=== PATIENT | male | born 1960 | race American Indian/Alaskan Native ===

== ENCOUNTER 2017-03-18 18:20 | Emergency (ER) | payer MEDICARE ==
[2017-03-18 18:42] VITALS: BP 105/70
--- NOTE | 2017-03-18 18:51 | Emergency Department Report ---
ED General Adult HPI - General Chief complaint: Medical Clearance Stated complaint: NEED RX FOR PIN NEEDLES Time Seen by Provider: 03/18/17 18:48 Source: patient Mode of arrival: Ambulatory Limitations: No Limitations - Related Data Previous Rx's Medication Instructions Recorded Last Taken Type Duloxetine HCl [Cymbalta] 60 mg PO QDAY #30 capsule. 01/02/14 Unknown Rx Insulin Aspart [NovoLOG Flexpen] 100 unit SQ TID #1 pen 01/02/14 Unknown Rx Prednisone [predniSONE] 20 mg PO QDAY #30 tablet 01/02/14 Unknown Rx Cyclobenzaprine [Flexeril 10mg] 10 mg PO Q8H PRN #21 tablet 05/14/14 Unknown Rx HYDROcodone/APAP 10-325 [Boss 1 each PO Q6HR PRN #20 tablet 05/14/14 Unknown Rx 10-325 mg TAB] Pen Needle, Diabetic [Insulin Pen 1 each MC TID #1 box 03/18/17 Unknown Rx Needle] Allergies Allergy/AdvReac Type Severity Reaction Status Date / Time Penicillins Allergy Unknown Verified 01/02/14 10:16 ED Review of Systems ROS: Stated complaint: NEED RX FOR PIN NEEDLES Other details as noted in HPI Comment: All other systems reviewed and negative Constitutional: no symptoms reported Eyes: as per HPI ENT: as per HPI Respiratory: no symptoms reported Cardiovascular: as per HPI Endocrine: no symptoms reported Gastrointestinal: as per HPI Genitourinary: as per HPI Musculoskeletal: as per HPI Skin: as per HPI Neurological: as per HPI Psychiatric: as per HPI Hematological/Lymphatic: as per HPI ED Past Medical Hx - Past Medical History Previous Medical History?: Yes Hx Diabetes: Yes Hx Psychiatric Treatment: Yes ([facility]) Additional medical history: pseudotumor behind the right eye. diabetic neuropathy. Hepatitis B - Surgical History Past Surgical History?: Yes Hx Cholecystectomy: Yes - Social History Smoking Status: Current Some Day Smoker - Medications Home Medications: Home Medications Medication Instructions Recorded Confirmed Last Taken Type Duloxetine HCl [Cymbalta] 60 mg PO QDAY #30 capsule. 01/02/14 05/14/14 Unknown Rx Insulin Aspart [NovoLOG Flexpen] 100 unit SQ TID #1 pen 01/02/14 05/14/14 Unknown Rx Prednisone [predniSONE] 20 mg PO QDAY #30 tablet 01/02/14 05/14/14 Unknown Rx Cyclobenzaprine [Flexeril 10mg] 10 mg PO Q8H PRN #21 tablet 05/14/14 05/14/14 Unknown Rx HYDROcodone/APAP 10-325 [Boss 1 each PO Q6HR PRN #20 tablet 05/14/14 05/14/14 Unknown Rx 10-325 mg TAB] Pen Needle, Diabetic [Insulin Pen 1 each MC TID #1 box 03/18/17 Unknown Rx Needle] ED Physical Exam - General Limitations: No Limitations General appearance: alert - Head Head exam: Present: atraumatic - ENT ENT exam: Present: normal exam - Neck Neck exam: Present: normal inspection - Respiratory Respiratory exam: Present: normal lung sounds bilaterally - Cardiovascular Cardiovascular Exam: Present: regular rate - GI/Abdominal GI/Abdominal exam: Present: soft - Extremities Exam Extremities exam: Present: normal inspection - Back Exam Back exam: Present: normal inspection - Neurological Exam Neurological exam: Present: alert, altered, oriented X3 - Psychiatric Psychiatric exam: Present: normal affect, normal mood - Skin Skin exam: Present: warm, dry, intact ED Course Vital Signs 03/18/17 18:40 Temperature 98.3 F Pulse Rate 89 Respiratory 18 Rate Blood Pressure 105/70 O2 Sat by Pulse 96 Oximetry ED Medical Decision Making - Medical Decision Making saw MD in [facility] today he got all his med x needles for his flexipen he needs rx for box of needles tid dosing no 90 per month disp 11 refills pharm may call prn Critical care attestation.: If time is entered above; I have spent that time in minutes in the direct care of this critically ill patient, excluding procedure time. ED Disposition Clinical Impression: Medicine refill Disposition: DISCHARGED TO HOME OR SELFCARE Is pt being admited?: No Does the pt Need Aspirin: No Condition: Stable Prescriptions: Pen Needle, Diabetic [Insulin Pen Needle] 1 each MC TID #1 box Time of Disposition: 18:48
== END 2017-03-18 18:50 | disposition home or self-care (01) ==
LOC: ED 18:20
DX: Z76.0 Encounter for issue of repeat prescription (principal); E11.9 Type 2 diabetes mellitus without complications; F17.200 Nicotine dependence, unspecified, uncomplicated; Z86.19 Personal history of other infectious and parasitic diseases; Z90.49 Acquired absence of other specified parts of digestive tract
CPT/HCPCS: 99282

== ENCOUNTER 2017-04-17 21:31 | Emergency (ER) | payer MEDICARE ==
[2017-04-17 22:39] LABS: Basophils % (Auto) 0.2 % (0.0-1.8); Eosinophils % (Auto) 0.6 % (0.0-4.3); Hematocrit 46.2 % (35.5-45.6); Hemoglobin 15.8 gm/dl (11.8-15.2); Mean Corpuscular HGB Conc 34 % (32-34); Mean Corpuscular Hemoglobin 33 pg (28-32); Mean Corpuscular Volume 98 fl (84-94); Platelet Count 223 K/mm3 (140-440); Red Blood Count 4.73 M/mm3 (3.65-5.03); Red Cell Distribution Width 12.2 % (13.2-15.2); White Blood Count 8.9 K/mm3 (4.5-11.0)
[2017-04-17 22:56] LABS: Anion Gap 18 mmol/L; Blood Urea Nitrogen 21 mg/dL (9-20); Calcium 9.6 mg/dL (8.4-10.2); Carbon Dioxide 31 mmol/L (22-30); Chloride 95.1 mmol/L (98-107); Glucose 367 mg/dL (75-100); Potassium 3.4 mmol/L (3.6-5.0); Sodium 141 mmol/L (137-145)
--- NOTE | 2017-04-18 00:11 | Cat Scan Report ---
FINAL REPORT EXAM: CT HEAD/BRAIN WO CON HISTORY: fall, midline pain COMPARISON: None available. TECHNIQUE: Axial images obtained skull base through vertex. FINDINGS: No acute intracranial hemorrhage, midline shift or pathologic extra axial fluid collection. Ventricles and cisterns are normal in size and configuration for the patient's age. Juan-white differentiation preserved. Calvarium grossly intact. Mild to moderate mucosal thickening of the left sphenoid sinus. Mastoid air cells are clear. Visualized orbits are grossly unremarkable. Multiple punctate calcifications scattered throughout the skin. Benign finding. IMPRESSION: No grossly acute intracranial abnormality.
--- NOTE | 2017-04-18 00:13 | Cat Scan Report ---
FINAL REPORT EXAM: CT CERVICAL SPINE WO CON HISTORY: fall, midline pain COMPARISON: None available. TECHNIQUE: Axial images obtained through the cervical spine. Additional sagittal and coronal reformatted images were obtained. FINDINGS: Straightening of the normal lordotic curvature of the cervical spine. Cervical vertebral body heights are preserved. No acute fracture or traumatic subluxation. Odontoid process, articular pillars and occipital condyles are intact. Moderate loss of disc height C4-C5 through C6-C7 levels. Mild to moderate canal stenosis and foraminal narrowing at those levels. IMPRESSION: No acute fracture or subluxation of the cervical spine. There is straightening of the normal lordotic curvature which may relate to patient positioning or muscle spasm. Mild to moderate degenerative changes.
--- NOTE | 2017-04-18 00:19 | Cat Scan Report ---
FINAL REPORT EXAM: CT THORACIC SPINE WO CON HISTORY: fall, midline pain COMPARISON: None available. TECHNIQUE: Contiguous axial images were obtained. Additional sagittal and coronal reformatted images were obtained. FINDINGS: Thoracic vertebral body heights are preserved. Mild loss of disc height at several levels. No significant canal or foramina ring throughout the thoracic spine. No acute fracture traumatic subluxation of the thoracic spine. Paraspinal musculature is grossly unremarkable. Visualized posterior ribs are intact. IMPRESSION: No acute fracture or traumatic subluxation of the thoracic spine. Mild degenerative changes.
--- NOTE | 2017-04-18 00:24 | Cat Scan Report ---
FINAL REPORT EXAM: CT LUMBAR SPINE WO CON HISTORY: fall, midline pain COMPARISON: None available. TECHNIQUE: Contiguous axial images were obtained. Additional sagittal and coronal reformatted images were obtained. FINDINGS: Lumbar vertebral body heights are preserved. Mild loss of disc height L5-S1 level. Remaining disc heights are preserved. No acute fracture traumatic subluxation of the lumbar spine. Mild broad-based disc bulge at the L4-L5 level causes mild canal stenosis. Mild bilateral foramina ring at that level due to endplate osteophyte mild broad-based disc bulge. Mild broad-based disc bulge at the L5-S1 level causes at least mild canal stenosis. Mild left and moderate right foraminal narrowing at that level due to endplate osteophyte and broad-based disc bulge. No significant canal or foramina ring throughout the remainder of the lumbar spine by CT. Paraspinal musculature is grossly unremarkable. Visualized aorta is normal in caliber with moderate calcification of the aorta. IMPRESSION: No acute fracture or traumatic subluxation of the lumbar spine. Mild to moderate degenerative changes of the lower lumbar spine.
[2017-04-18] MEDS ORDERED: NORCO 5/325 PO ONE (01:51)
[2017-04-18] MEDS ORDERED: FLEXERIL PO ONE (01:51)
--- NOTE | 2017-04-18 01:52 | Emergency Department Report ---
ED Fall HPI - General Chief Complaint: Fall Stated Complaint: BACK/NECK/HEADACHE Time Seen by Provider: 04/18/17 01:43 Source: patient, family Mode of arrival: Ambulatory - History of Present Illness Initial Comments: Patient reported that he slipped and fell Saturday or Saturday down 4 steps and is complaining of midline pain to lower back and neck and headache. Denies any loss of consciousness, nausea or vomiting, blurred vision. Denies any alcohol use. Denies any numbness or tingling to extremities or any loss of bowel or bladder function. He reports pain is 4 out of 10 to the back of his neck had an lower back and also mid back. Feels achy. He is also reports pounding pain to lower back at both sides. MD Complaint: fall Onset/Timin -: days(s) Fall From: standing When Fall Occurred: # days [employer] (3) Fall Witnessed: yes, by family Place Fall Occurred: home Loss of Consciousness: none Prolonged Down Time?: no Symptoms Prior to Fall: none Location: head, neck, back Severity: mild Severity scale (0 -10): 4 Quality: aching Context: tripped/slipped Associated Symptoms: headache, neck pain. denies: numbness, weakness, chest paint, shortness of breath, abdominal pain, hematuria, unable to walk, lightheaded, vertigo, confusion - Related Data Previous Rx's Medication Instructions Recorded Last Taken Type Duloxetine HCl [Cymbalta] 60 mg PO QDAY #30 capsule. 01/02/14 Unknown Rx Insulin Aspart [NovoLOG Flexpen] 100 unit SQ TID #1 pen 01/02/14 Unknown Rx Prednisone [predniSONE] 20 mg PO QDAY #30 tablet 01/02/14 Unknown Rx Cyclobenzaprine [Flexeril 10mg] 10 mg PO Q8H PRN #21 tablet 05/14/14 Unknown Rx HYDROcodone/APAP 10-325 [[place] 1 each PO Q6HR PRN #20 tablet 05/14/14 Unknown Rx 10-325 mg TAB] Pen Needle, Diabetic [Insulin Pen 1 each MC TID #1 box 03/18/17 Unknown Rx Needle] methOCARBAMOL [Robaxin TAB] 500 mg PO BID PRN #12 tab 04/18/17 Unknown Rx traMADol [Ultram] 50 mg PO Q6HR PRN #12 tablet 04/18/17 Unknown Rx Allergies Allergy/AdvReac Type Severity Reaction Status Date / Time Penicillins Allergy Unknown Verified 01/02/14 10:16 ED Review of Systems ROS: Stated complaint: BACK/NECK/HEADACHE Other details as noted in HPI Comment: All other systems reviewed and negative Constitutional: denies: chills, fever Eyes: denies: eye pain, vision change Respiratory: no symptoms reported Cardiovascular: denies: chest pain, palpitations, edema, syncope Gastrointestinal: denies: abdominal pain, nausea, vomiting, diarrhea Musculoskeletal: back pain, arthralgia, myalgia. denies: joint swelling Skin: denies: rash Neurological: headache. denies: weakness, numbness, paresthesias, confusion, abnormal gait, vertigo ED Past Medical Hx - Past Medical History Previous Medical History?: Yes Hx Diabetes: Yes Hx Psychiatric Treatment: Yes ([facility], [facility]) Additional medical history: pseudotumor behind the right eye. diabetic neuropathy. Hepatitis B - Surgical History Past Surgical History?: Yes Hx Cholecystectomy: Yes - Family History Family history: hypertension - Social History Smoking Status: Current Every Day Smoker Substance Use Type: None - Medications Home Medications: Home Medications Medication Instructions Recorded Confirmed Last Taken Type Duloxetine HCl [Cymbalta] 60 mg PO QDAY #30 capsule. 01/02/14 05/14/14 Unknown Rx Insulin Aspart [NovoLOG Flexpen] 100 unit SQ TID #1 pen 01/02/14 05/14/14 Unknown Rx Prednisone [predniSONE] 20 mg PO QDAY #30 tablet 01/02/14 05/14/14 Unknown Rx Cyclobenzaprine [Flexeril 10mg] 10 mg PO Q8H PRN #21 tablet 05/14/14 05/14/14 Unknown Rx HYDROcodone/APAP 10-325 [[place]ell 1 each PO Q6HR PRN #20 tablet 05/14/14 05/14/14 Unknown Rx 10-325 mg TAB] Pen Needle, Diabetic [Insulin Pen 1 each MC TID #1 box 03/18/17 Unknown Rx Needle] methOCARBAMOL [Robaxin TAB] 500 mg PO BID PRN #12 tab 04/18/17 Unknown Rx traMADol [Ultram] 50 mg PO Q6HR PRN #12 tablet 04/18/17 Unknown Rx ED Physical Exam - General Limitations: No Limitations General appearance: alert, in no apparent distress - Head Head exam: Present: atraumatic, normocephalic, normal inspection - Expanded Head Exam Expanded Head exam: Absent: laceration, abrasion, contusion, hematoma, racoon eyes, hahn's sign, general tenderness, tenderness of temporal artery, CSF rhinorrhea , CSF otorrhea - Eye Eye exam: Present: normal appearance, PERRL, EOMI. Absent: scleral icterus, conjunctival injection, nystagmus, periorbital swelling, periorbital tenderness Pupils: Present: normal accommodation - ENT ENT exam: Present: normal exam, normal orophraynx, mucous membranes moist, TM's normal bilaterally, normal external ear exam - Neck Neck exam: Present: normal inspection, tenderness, full ROM. Absent: meningismus, lymphadenopathy - Expanded Neck Exam Expanded Neck exam: Present: tenderness. Absent: midline deformity, anterior neck swelling, tracheal deviation - Respiratory Respiratory exam: Present: normal lung sounds bilaterally. Absent: respiratory distress, wheezes, rales, rhonchi, stridor, chest wall tenderness - Cardiovascular Cardiovascular Exam: Present: regular rate, normal rhythm, normal heart sounds - GI/Abdominal GI/Abdominal exam: Present: soft, normal bowel sounds. Absent: distended, tenderness, guarding, rebound, rigid - Extremities Exam Extremities exam: Present: normal inspection, full ROM, normal capillary refill. Absent: tenderness, pedal edema, joint swelling, calf tenderness - Back Exam Back exam: Present: normal inspection, full ROM, tenderness, muscle spasm, vertebral tenderness (midline tenderness to L-spine). Absent: CVA tenderness (R ), CVA tenderness (L), paraspinal tenderness, rash noted - Expanded Back Exam Expanded Back exam: Absent: saddle anesthesia Back exam: Negative Straight Leg Raising: Left, Right - Neurological Exam Neurological exam: Present: alert, oriented X3, normal gait, reflexes normal. Absent: motor sensory deficit - Expanded Neurological Exam Expanded Neurological exam: Absent: innattentive, memory loss-remote event, memory loss- recent event, ataxia, receptive aphasia, expressive aphasia, total aphasia, tremor, protecting the airway Patient oriented to: Present: person, place, time Speech: Present: fluid speech Cranial nerves: EOM's Intact: Normal, Gag Reflex: Normal, Nystagmus: Normal, Facial Sensation: Normal Cerebellar function: Romberg: Normal Upper motor neuron: Pronator Drift: Normal, Sensory Extinction: Normal Sensory exam: Upper Extremity Light Touch: Normal, Upper Extremity Pin Prick: Normal, Upper Extremity Temperature: Normal, UE 2 Point Discrimination: Normal, Lower Extremity Light Touch: Normal, Lower Extremity Pin Prick: Normal, Lower Extremity Temperature: Normal, LE 2 Point Discrimination: Normal Motor strength exam: RUE: 5, LUE: 5, RLE: 5, LLE: 5 DTR: bicep (R): 2+, bicep (L): 2+, tricep (R): 2+, tricep (L): 2+, knee (R): 2+ , knee (L): 2+, ankle (R): 2+, ankle (L): 2+ Best Eye Response (Jesus): (4) open spontaneously Best Motor Response (Jesus): (6) obeys commands Best Verbal Response (Jesus): (5) oriented Jesus Total: 15 - Psychiatric Psychiatric exam: Present: normal affect, normal mood - Skin Skin exam: Present: warm, dry, intact, normal color. Absent: rash ED Course Vital Signs 04/17/17 21:54 Temperature 99.3 F Pulse Rate 81 Respiratory 18 Rate Blood Pressure 113/74 [Right] O2 Sat by Pulse 96 Oximetry - Reevaluation(s) Reevaluation #1: 04/18/17 02:42 Patient given Flexeril 10 mg and 5/325 one tablet in the emergency room for muscle spasm and musculoskeletal Pain 04/18/17 02:43 ED Medical Decision Making - Lab Data Result diagrams: 04/17/17 22:13 04/17/17 22:13 Lab Results 04/17/17 04/17/17 Range/Units 22:13 22:13 WBC 8.9 (4.5-11.0) K/mm3 RBC 4.73 (3.65-5.03) M/mm3 Hgb 15.8 H (11.8-15.2) gm/dl Hct 46.2 H (35.5-45.6) % MCV 98 H (84-94) fl MCH 33 H (28-32) pg MCHC 34 (32-34) % RDW 12.2 L (13.2-15.2) % Plt Count 223 (140-440) K/mm3 Lymph % (Auto) 37.4 H (13.4-35.0) % [place] % (Auto) 8.4 H (0.0-7.3) % Eos % (Auto) 0.6 (0.0-4.3) % Baso % (Auto) 0.2 (0.0-1.8) % Lymph # 3.3 (1.2-5.4) K/mm3 [place] # 0.7 (0.0-0.8) K/mm3 Eos # 0.1 (0.0-0.4) K/mm3 Baso # 0.0 (0.0-0.1) K/mm3 Seg Neutrophils % 53.4 (40.0-70.0) % Seg Neutrophils # 4.7 (1.8-7.7) K/mm3 Sodium 141 (137-145) mmol/L Potassium 3.4 L (3.6-5.0) mmol/L Chloride 95.1 L (98-107) mmol/L Carbon Dioxide 31 H (22-30) mmol/L Anion Gap 18 mmol/L BUN 21 H (9-20) mg/dL Creatinine 1.0 (0.8-1.5) mg/dL Estimated GFR > 60 ml/min BUN/Creatinine Ratio 21.00 % Glucose 367 H (75-100) mg/dL Calcium 9.6 (8.4-10.2) mg/dL - Radiology Data Radiology results: report reviewed CT scan lumbar spine without contrast revealed no acute fracture or traumatic subluxation of the lumbar spine. Mild to moderate degenerative changes of the lower lumbar spine. CT scan of the brain without contrast revealed no grossly acute intracranial abnormalities. CT scan of the cervical spine reveals no acute fracture or subluxation of the cervical spine. There is straightening of the normal lordotic curvature which may relate to the patient positioning or muscle spasm. He does have muscle spasm. He does have mild to moderate degenerative changes. CT scan of the thoracic spine reveal no fracture or traumatic subluxation of the thoracic spine mild degenerative changes. - Medical Decision Making ED course: Status post fall 3 days ago with complaint of headache, midline neck pain, midline back pain and bilateral lower back pain and also upper back pain. He is neurologically intact and all CT scans were negative except for findings for degenerative changes and neck muscle spasm. This was explained to patient in detail and he voiced understanding. She was given Flexeril 10 mg and milk 5/325 one tablet in the emergency room for relief of pain. He was also given potassium 40 mEq 1 for potassium of 3.4 which is mildly decreased. Her explained to him that he CBC shows that he is dehydrated and he is to increase his fluid intake. Patient denies that he drink alcohol. Platelet is stable. I discussed the patient if he continues to have pain in his follow-up orthopedic doctor and patient was understanding discharged with family with prescription for Motrin and Robaxin. Critical care attestation.: If time is entered above; I have spent that time in minutes in the direct care of this critically ill patient, excluding procedure time. ED Disposition Clinical Impression: Hypokalemia, Back muscle spasm Accidental fall on or from stairs or steps Qualifiers: Encounter type: initial encounter Qualified Code(s): W10.8XXA - Fall (on) (from ) other stairs and steps, initial encounter Acute post-traumatic headache Qualifiers: Intractability: not intractable Qualified Code(s): G44.319 - Acute post- traumatic headache, not intractable Degenerative joint disease of spine Qualifiers: Spinal region: unspecified Spinal osteoarthritis complication: without myelopathy or radiculopathy Qualified Code(s): M47.819 - Spondylosis without myelopathy or radiculopathy, site unspecified Neck muscle strain Qualifiers: Encounter type: initial encounter Qualified Code(s): S16.1XXA - Strain of muscle, fascia and tendon at neck level, initial encounter Disposition: DC-01 TO HOME OR SELFCARE Is pt being admited?: No Does the pt Need Aspirin: No Condition: Stable Instructions: Muscle Strain (ED), Degenerative Disc Disease (ED), Muscle Spasm (ED), Back Pain (ED), Fall Prevention (ED), Hypokalemia (ED), Acute Headache (ED ) Additional Instructions: Your potassium level mildly decreased so., Eat At least 2 bananas to increase her potassium . Take medication as prescribed. Robaxin cause drowsiness. Do not drive or operate heavy machinery while taking this medication. Follow-up with orthopedic doctor if he still continued to have pain Please increase her fluid intake Prescriptions: methOCARBAMOL [Robaxin TAB] 500 mg PO BID PRN #12 tab PRN Reason: Muscle Spasm traMADol [Ultram] 50 mg PO Q6HR PRN #12 tablet PRN Reason: Pain Referrals: PRIMARY CAREMD [Primary Care Provider] - 04/19/17 KAYKAY MUÑOZ MD [Staff Physician] - 04/22/17 Forms: Accompanied Note, Work/School Release Form(ED)
[2017-04-18] MEDS ORDERED: K-DUR PO ONE (02:43)
[2017-04-18 03:10] VITALS: BP 145/84
== END 2017-04-18 03:00 | disposition home or self-care (01) ==
LOC: ED 21:31
DX: G44.319 Acute post-traumatic headache, not intractable (principal); E87.6 Hypokalemia; M47.9 Spondylosis, unspecified; S16.1XXA Strain of muscle, fascia and tendon at neck level, initial encounter; I10 Essential (primary) hypertension; M62.830 Muscle spasm of back; F17.210 Nicotine dependence, cigarettes, uncomplicated; E11.40 Type 2 diabetes mellitus with diabetic neuropathy, unspecified; F32.9 Major depressive disorder, single episode, unspecified; Z90.49 Acquired absence of other specified parts of digestive tract; Z88.0 Allergy status to penicillin; Z79.4 Long term (current) use of insulin; W10.9XXA Fall (on) (from) unspecified stairs and steps, initial encounter; Y93.89 Activity, other specified; Y92.89 Other specified places as the place of occurrence of the external cause; Y99.8 Other external cause status
CPT/HCPCS: 36415; 70450; 72125; 72128; 72131; 80048; 85025; 99284

== ENCOUNTER 2020-12-14 15:41 | Emergency (ER) | payer MEDICARE ==
--- NOTE | 2020-12-14 15:46 | Event Note ---
ED Screening Note Date of service: 12/14/20 Time: 15:45 ED Screening Note: This is a pleasant 60-year-old male presents the emergency department with chief complaint of right-sided lower abdominal pain has been intermittent over the past month but much more severe over the past 2 days. He reports associated nausea and vomiting. Denies any diarrhea, melena, hematochezia, testicular pain, fever, chills, night sweats, headache, dizziness, blurry vision or any other associated symptoms. Has history of hypertension diabetes. This initial assessment/diagnostic orders/clinical plan/treatment(s) is/are subject to change based on patients health status, clinical progression and re-assessment by fellow clinical providers in the ED. Further treatment and workup at subsequent clinical providers discretion. Patient/guardian urged not to elope from the ED as their condition may be serious if not clinically assessed and managed. Initial orders include: CBC, CMP, lipase, urinalysis.
[2020-12-14 15:52] VITALS: BP 111/67
[2020-12-14 16:14] LABS: Basophils % (Auto) 0.6 % (0.0-1.8); Eosinophils # (Auto) 0.1 K/mm3 (0.0-0.4); Eosinophils % (Auto) 1.2 % (0.0-4.3); Hemoglobin 14.7 gm/dl (11.8-15.2); Lymphocytes # (Auto) 1.4 K/mm3 (1.2-5.4); Lymphocytes % (Auto) 30.1 % (13.4-35.0); Mean Corpuscular HGB Conc 34 % (32-34); Mean Corpuscular Volume 99 fl (84-94); Monocytes # (Auto) 0.4 K/mm3 (0.0-0.8); Monocytes % (Auto) 8.7 % (0.0-7.3); Platelet Count 193 K/mm3 (140-440); Red Blood Count 4.35 M/mm3 (3.65-5.03)
[2020-12-14 16:25] LABS: Alanine Aminotransferase 26 units/L (7-56); Albumin 4.3 g/dL (3.9-5); BUN/Creatinine Ratio 16; Bilirubin,Direct 0.2 mg/dL (0-0.2); Blood Urea Nitrogen 16 mg/dL (9-20); Calcium 9.4 mg/dL (8.4-10.2); Hemolysis Index 10
[2020-12-14] MEDS ORDERED: MORPHINE 4 MG/1 ML INJ IV ONE (17:04)
[2020-12-14] MEDS ORDERED: ONDANSETRON 4 MG/2 ML INJ IV ONE (17:04)
--- NOTE | 2020-12-14 17:06 | Emergency Department Report ---
ED General Adult HPI - General Chief complaint: Abdominal Pain Stated complaint: LOWER STOMACH PAIN Time Seen by Provider: 12/14/20 16:41 Source: patient Mode of arrival: Ambulatory Limitations: No Limitations - History of Present Illness Initial comments: The patient presents to the emergency department with a chief complaint of right lower quadrant abdominal pain that has been on and off for the last month. Patient states today that abdominal pain became intense and has been continuous since its onset. Patient also complains of a 7 pound unintended weight loss in the last month. Patient denies any chest pain, shortness of breath, or headache. Patient states any movement causes the abdominal pain to get worse. -: Gradual Location: abdomen Radiation: non-radiation Severity scale (0 -10): 7 Quality: sharp Consistency: constant Improves with: none Worsens with: movement Associated Symptoms: denies other symptoms Treatments Prior to Arrival: none - Related Data Previous Rx's Medication Instructions Recorded Last Taken Type Duloxetine HCl [Cymbalta] 60 mg PO QDAY #30 capsule. 01/02/14 Unknown Rx Insulin Aspart (Nf) [NovoLOG 100 unit SQ TID #1 pen 01/02/14 Unknown Rx Flexpen] predniSONE 20 mg PO QDAY #30 tablet 01/02/14 Unknown Rx Cyclobenzaprine [Flexeril 10mg] 10 mg PO Q8H PRN #21 tablet 05/14/14 Unknown Rx HYDROcodone/APAP 10-325 [[place] 1 each PO Q6HR PRN #20 tablet 05/14/14 Unknown Rx 10-325 mg TAB] Pen Needle, Diabetic [Insulin Pen 1 each MC TID #1 box 03/18/17 Unknown Rx Needle] methOCARBAMOL [Robaxin TAB] 500 mg PO BID PRN #12 tab 04/18/17 Unknown Rx traMADoL [Ultram] 50 mg PO Q6HR PRN #12 tablet 04/18/17 Unknown Rx traMADoL [Ultram] 50 mg PO Q6HR PRN #24 tablet 12/14/20 Unknown Rx Allergies Allergy/AdvReac Type Severity Reaction Status Date / Time Penicillins Allergy Unknown Verified 01/02/14 10:16 ED Review of Systems ROS: Stated complaint: LOWER STOMACH PAIN Other details as noted in HPI Comment: All other systems reviewed and negative Constitutional: denies: chills, fever Eyes: denies: eye pain, eye discharge, vision change ENT: denies: ear pain, throat pain Respiratory: denies: cough, shortness of breath, wheezing Cardiovascular: denies: chest pain, palpitations Endocrine: no symptoms reported Gastrointestinal: abdominal pain. denies: nausea, diarrhea Genitourinary: denies: urgency, dysuria Musculoskeletal: denies: back pain, joint swelling, arthralgia Skin: denies: rash, lesions Neurological: denies: headache, weakness, paresthesias Psychiatric: denies: anxiety, depression Hematological/Lymphatic: denies: easy bleeding, easy bruising ED Past Medical Hx - Past Medical History Previous Medical History?: Yes Hx Diabetes: Yes Hx Psychiatric Treatment: Yes ([facility], [facility]) Additional medical history: pseudotumor behind the right eye. diabetic neuropathy. Hepatitis B - Surgical History Past Surgical History?: Yes Hx Cholecystectomy: Yes - Social History Smoking Status: Current Every Day Smoker Substance Use Type: None - Medications Home Medications: Home Medications Medication Instructions Recorded Confirmed Last Taken Type Duloxetine HCl [Cymbalta] 60 mg PO QDAY #30 capsule. 01/02/14 05/14/14 Unknown Rx Insulin Aspart (Nf) [NovoLOG 100 unit SQ TID #1 pen 01/02/14 05/14/14 Unknown Rx Flexpen] predniSONE 20 mg PO QDAY #30 tablet 01/02/14 05/14/14 Unknown Rx Cyclobenzaprine [Flexeril 10mg] 10 mg PO Q8H PRN #21 tablet 05/14/14 05/14/14 Unknown Rx HYDROcodone/APAP 10-325 [[place] 1 each PO Q6HR PRN #20 tablet 05/14/14 05/14/14 Unknown Rx 10-325 mg TAB] Pen Needle, Diabetic [Insulin Pen 1 each MC TID #1 box 03/18/17 Unknown Rx Needle] methOCARBAMOL [Robaxin TAB] 500 mg PO BID PRN #12 tab 04/18/17 Unknown Rx traMADoL [Ultram] 50 mg PO Q6HR PRN #12 tablet 04/18/17 Unknown Rx traMADoL [Ultram] 50 mg PO Q6HR PRN #24 tablet 12/14/20 Unknown Rx ED Physical Exam - General Limitations: No Limitations General appearance: alert, in no apparent distress - Head Head exam: Present: atraumatic, normocephalic - Eye Eye exam: Present: normal appearance, PERRL, EOMI - ENT ENT exam: Present: mucous membranes moist - Neck Neck exam: Present: normal inspection - Respiratory Respiratory exam: Present: normal lung sounds bilaterally. Absent: respiratory distress - Cardiovascular Cardiovascular Exam: Present: regular rate, normal rhythm. Absent: systolic murmur, diastolic murmur, rubs, gallop - GI/Abdominal GI/Abdominal exam: Present: soft, tenderness, normal bowel sounds, other (Tender to palpation right lower quadrant) - Rectal Rectal exam: Present: deferred - Extremities Exam Extremities exam: Present: normal inspection - Back Exam Back exam: Present: normal inspection - Neurological Exam Neurological exam: Present: alert, oriented X3, CN II-XII intact. Absent: motor sensory deficit - Psychiatric Psychiatric exam: Present: normal affect, normal mood - Skin Skin exam: Present: warm, dry, intact, normal color. Absent: rash ED Course Vital Signs 12/14/20 15:49 Temperature 98.6 F Pulse Rate 78 Respiratory 16 Rate Blood Pressure 111/67 O2 Sat by Pulse 99 Oximetry ED Medical Decision Making - Lab Data Result diagrams: 12/14/20 15:53 12/14/20 15:53 Lab Results 12/14/20 12/14/20 12/14/20 Range/Units 15:53 15:53 18:08 WBC 4.5 (4.5-11.0) K/mm3 RBC 4.35 (3.65-5.03) M/mm3 Hgb 14.7 (11.8-15.2) gm/dl Hct 43.0 (35.5-45.6) % MCV 99 H (84-94) fl MCH 34 H (28-32) pg MCHC 34 (32-34) % RDW 12.0 L (13.2-15.2) % Plt Count 193 (140-440) K/mm3 Lymph % (Auto) 30.1 (13.4-35.0) % [place] % (Auto) 8.7 H (0.0-7.3) % Eos % (Auto) 1.2 (0.0-4.3) % Baso % (Auto) 0.6 (0.0-1.8) % Lymph # (Auto) 1.4 (1.2-5.4) K/mm3 [place] # (Auto) 0.4 (0.0-0.8) K/mm3 Eos # (Auto) 0.1 (0.0-0.4) K/mm3 Baso # (Auto) 0.0 (0.0-0.1) K/mm3 Seg Neutrophils % 59.4 (40.0-70.0) % Seg Neutrophils # 2.7 (1.8-7.7) K/mm3 Sodium 139 (137-145) mmol/L Potassium 4.5 (3.6-5.0) mmol/L Chloride 101.4 (98-107) mmol/L Carbon Dioxide 34 H (22-30) mmol/L Anion Gap 8 mmol/L BUN 16 (9-20) mg/dL Creatinine 1.0 (0.8-1.3) mg/dL Estimated GFR > 60 ml/min BUN/Creatinine Ratio 16 % Glucose 169 H (75-100) mg/dL Calcium 9.4 (8.4-10.2) mg/dL Total Bilirubin 0.90 (0.1-1.2) mg/dL Direct Bilirubin 0.2 (0-0.2) mg/dL Indirect Bilirubin 0.7 mg/dL AST 20 (5-40) units/L ALT 26 (7-56) units/L Alkaline Phosphatase 97 (35-129) units/L Total Protein 7.6 (6.3-8.2) g/dL Albumin 4.3 (3.9-5) g/dL Albumin/Globulin Ratio 1.3 % Lipase 43 (13-60) units/L Urine Color Yellow (Yellow) Urine Turbidity Clear (Clear) Urine pH 5.0 (5.0-7.0) Ur Specific [place] 1.026 (1.003-1.030) Urine Protein <15 mg/dl (Negative) mg/dL Urine Glucose (UA) 150 (Negative) mg/dL Urine Ketones Neg (Negative) mg/dL Urine Blood Neg (Negative) Urine Nitrite Neg (Negative) Urine Bilirubin Neg (Negative) Urine Urobilinogen 4.0 (<2.0) mg/dL Ur Leukocyte Esterase Neg (Negative) Urine WBC (Auto) 1.0 (0.0-6.0) /HPF Urine RBC (Auto) 1.0 (0.0-6.0) /HPF U Epithel Cells (Auto) < 1.0 (0-13.0) /HPF Urine Mucus 1+ /HPF - Radiology Data Radiology results: report reviewed - Medical Decision Making Discussed results with patient Critical care attestation.: If time is entered above; I have spent that time in minutes in the direct care of this critically ill patient, excluding procedure time. ED Disposition Clinical Impression: Abdominal pain Disposition: DC-01 TO HOME OR SELFCARE Is pt being admited?: No Does the pt Need Aspirin: No Condition: Stable Instructions: Abdominal Pain, Adult Additional Instructions: return if worse Referrals: PRIMARY CARE, [Referring] - 3-5 Days POWER RAUSCH MD [Primary Care Provider] - 3-5 Days Time of Disposition: 19:40
[2020-12-14 18:21] LABS: Bilirubin,Urine NEG (Negative); Blood,Urine NEG (Negative); Color,Urine Yellow (Yellow); Mucus,Urine 1+ /HPF; Protein,Urine <15 mg/dL mg/dL (Negative)
--- NOTE | 2020-12-14 19:10 | Cat Scan Report ---
CT ABDOMEN AND PELVIS WITH CONTRAST HISTORY: rlq ab pain. COMPARISON: None. TECHNIQUE: CT images of the abdomen and pelvis were obtained following administration of intravenous contrast. All CT scans at this location are performed using CT dose reduction for ALARA by means of automated exposure control. CONTRAST: 100 ml of intravenous contrast administered. FINDINGS: Lungs/bones: Mild increased interstitial prominence within the lung bases. No focal consolidation Abdomen/pelvis: The liver, spleen, adrenal glands appear normal. Pancreatic duct is slightly promine nt however symmetric throughout. Common bile duct measures prominence status post cholecystectomy. The appendix is very difficult to visualize throughout however there is gas within a large portion of the appendix without evidence for acute appendicitis. Penile pump is noted with reservoir in the pel vis. No evidence for bowel obstruction is seen. Visualized portions of the urinary bladder appear nor mal. Atherosclerotic changes seen throughout the aorta. No acute bone findings are seen. IMPRESSION: 1. No evidence for appendicitis. 2. Penile pump with reservoir the pelvis. 3. No evidence for bowel obstruction. 4 Mild increased interstitial prominence in the lower lungs however no focal consolidation. 5. Mild intra and extra hepatic biliary ductal dilatation status post cholecystectomy. 6. Mild soft tissue density and thickening surrounding the aorta and common iliac vessels. Findings c ould represent some retroperitoneal fibrosis however no dominant adenopathy is seen. Signer Name: Hemant Byrd MD Signed: 12/14/2020 7:05 PM Workstation Name: [email or web address]
== END 2020-12-14 20:02 | disposition home or self-care (01) ==
LOC: ED 15:41
DX: R10.31 Right lower quadrant pain (principal); E11.9 Type 2 diabetes mellitus without complications; F17.200 Nicotine dependence, unspecified, uncomplicated; Z90.49 Acquired absence of other specified parts of digestive tract; Z79.4 Long term (current) use of insulin; Z79.899 Other long term (current) drug therapy; Z88.0 Allergy status to penicillin
CPT/HCPCS: 36415; 74177; 80048; 80076; 81001; 83690; 85025; 96374; 96375; 99284; J2270; J2405; Q9967